=== PATIENT | female | born 1990 | race Caucasian/White ===

== ENCOUNTER 2016-09-13 05:36 | Inpatient (IN) | payer BC ==
[2016-09-13] VITALS (18 sets, daily range): BP systolic 119–150; BP diastolic 76–92; PULSE 67–79; TEMP 97.7–98.3
[~2016-09-13] VITALS: Ht 157.5 cm; Wt 92.7 kg
[~2016-09-13 05:36] MED LIST: IBREN600 MG PO; LANSINOH FOR BR1 OIN TP; MOTRIN 600600 MG/TAB PO; MOTRIN 800800 MG/TAB PO; PERCOCET 325 MG1 TA2 PO; PRENATAL1 TA1 PO; SENOKOT S 50 MG1 TAB PO; TYLENOL 325MG325 MG PO
[2016-09-13 07:10] LABS: MEAN CELL VOLUME 82 fl (80.0-100.0); MEAN CORPUSCULAR HGB CONC 33 g/dl (33.0-37.0); MEAN PLATELET VOLUME 10.8 fl (7.4-10.4); PLATELET COUNT 186 K/mm3 (130-400); RED BLOOD COUNT 4.36 M/mm3 (4.10-5.30); REDCELL DISTRIBUTION WIDTH-CV 13.7 % (11.5-14.5); WHITE BLOOD COUNT 6.3 K/mm3 (4.8-10.8)
[2016-09-13 07:14] LABS: ADD PATHOLOGY DIFF REVIEW NO; HEMATOCRIT 35.8 % (37.0-47.0); HEMOGLOBIN 11.7 g/dl (12.5-16.0); MEAN CORPUSCULAR HEMOGLOBIN 27 pg (27.0-31.0)
[2016-09-13 07:57] LABS: BAND 1 % (0-10); NEUTROPHILS 63 % (42.0-75.2); TOTAL CELLS COUNTED 100
[2016-09-13 07:58] LABS: PLATELET ESTIMATE NORMAL (NORMAL)
[2016-09-14 04:00] VITALS: BP 121/70; PULSE 77; TEMP 98.4
[2016-09-14 08:00] VITALS: BP 121/84; PULSE 82; TEMP 98
[2016-09-14 12:18] VITALS: BP 115/77; PULSE 74; TEMP 98.4
[2016-09-14 17:23] VITALS: BP 130/88; PULSE 86; TEMP 98.4
[2016-09-14 21:30] VITALS: BP 120/79; PULSE 72; TEMP 98.7
[2016-09-15 08:30] VITALS: BP 122/82; PULSE 71; TEMP 98.6
[2016-09-15] MEDS ORDERED: IBU800 M1 PO (09:14)
[2016-09-15] MEDS ORDERED: PERCOCET 325 MG1 TA2 PO (09:14)
[2016-09-15 16:28] VITALS: BP 125/80; PULSE 72; TEMP 98.5
== END 2016-09-15 17:15 | disposition home or self-care (01) | DRG 766 ==
LOC: OB 05:36
PROVIDERS: Obstetrics & Gynecology
PROC: 10D00Z1 Extraction of Products of Conception, Low, Open Approach (ICD-10-PCS; principal; 2016-09-13)
DX: O34.211 Maternal care for low transverse scar from previous cesarean delivery (principal); N85.8 Other specified noninflammatory disorders of uterus; Z3A.39 39 weeks gestation of pregnancy; Z37.0 Single live birth
CPT/HCPCS: J0690; J1885; J2270; J2370; J2405; J2590; J7120

== ENCOUNTER 2019-01-22 10:47 | Inpatient (IN) | payer OTHER ==
[2019-01-22] VITALS (18 sets, daily range): BP systolic 100–131; BP diastolic 53–81; PULSE 71–93; TEMP 97.9–98.4
[~2019-01-22] VITALS: Ht 157.5 cm; Wt 91.8 kg
[~2019-01-22 10:47] MED LIST changes: +IBU800 M1 PO
[2019-01-22 11:52] LABS: BASO % 0.3 % (0.0-2.0); EOS % 0.4 % (0-4.0); GRAN # 5.5 (1.4-6.5); GRAN % 70.4 % (42.2-75.2); HEMOGLOBIN 11.5 g/dl (12.5-16.0); LYMPH # 1.6 (1.2-3.4); LYMPH % 20.1 % (20.0-51.0); MEAN CELL VOLUME 86 fl (80.0-100.0); MEAN CORPUSCULAR HEMOGLOBIN 28 pg (27.0-31.0); MEAN CORPUSCULAR HGB CONC 32 g/dl (33.0-37.0); MEAN PLATELET VOLUME 10.5 fl (7.4-10.4); MONO # 0.6 (0.1-0.6); MONO % 7.6 % (1.7-9.3); PLATELET COUNT 216 K/mm3 (130-400); RED BLOOD COUNT 4.15 M/mm3 (4.10-5.30)
[2019-01-22 11:55] LABS: HEMATOCRIT 35.5 % (37.0-47.0)
--- NOTE | 2019-01-22 14:26 | NUR ---
1340 RETURNED TO ROOM 221 FROM PACU. PT ALERT AND NURSING INFANT. SWITCHED TO OTHER BREAST WITH ASSISTANCE. WATER, JUICE AND CRACKERS PROVIDED.
[2019-01-22] MEDS ORDERED: FERROUS SU325 MG/TAB PO (14:40)
[2019-01-22] MEDS ORDERED: PROBIOTIC FORMU1 CAP PO (14:41)
--- NOTE | 2019-01-22 17:44 | NUR ---
1600 PT RESTING IN ROOM, SLEEPINGIN CRIB DENIES NEEDS AT THIS TIME
[2019-01-23 03:45] VITALS: BP 114/76; PULSE 74; TEMP 97
[2019-01-23 07:41] VITALS: BP 123/85; PULSE 74; TEMP 98.4
[2019-01-23 16:13] VITALS: BP 125/82; PULSE 71; TEMP 87.3
[2019-01-23 21:00] VITALS: BP 135/80; PULSE 71; TEMP 98.5
[2019-01-24] MEDS ORDERED: NORCO 325 MG-51 TAB PO (08:29)
[2019-01-24] MEDS ORDERED: MOTRIN 800800 MG/TAB PO (08:29)
[2019-01-24 09:00] VITALS: BP 127/79; PULSE 69; TEMP 98.6
== END 2019-01-24 15:35 | disposition home or self-care (01) | DRG 788 ==
LOC: OB 10:47 → LDR 13:20 → OB 01-24 15:35
PROVIDERS: ADMIT Obstetrics & Gynecology
PROC: 10D00Z1 Extraction of Products of Conception, Low, Open Approach (ICD-10-PCS; principal; 2019-01-22)
DX: O34.211 Maternal care for low transverse scar from previous cesarean delivery (principal); Z3A.39 39 weeks gestation of pregnancy; Z37.0 Single live birth; O99.214 Obesity complicating childbirth; O99.62 Diseases of the digestive system complicating childbirth; K21.9 Gastro-esophageal reflux disease without esophagitis; O69.81X0 Labor and delivery complicated by cord around neck, without compression, not applicable or unspecified
CPT/HCPCS: J0690; J1885; J2370; J2405; J2590; J3010; J7120

== ENCOUNTER 2020-11-17 10:00 | Inpatient (IN) | payer OTHER ==
[2020-11-17] VITALS (15 sets, daily range): BP systolic 116–180; BP diastolic 9–104; PULSE 66–84; TEMP 97.7–99.1
[~2020-11-17] VITALS: Ht 157.5 cm; Wt 90.9 kg
[~2020-11-17 10:00] MED LIST changes: +FERROUS SU325 MG/TAB PO; +NORCO 325 MG-51 TAB PO; +PROBIOTIC FORMU1 CAP PO
--- NOTE | 2020-11-17 14:15 | NUR ---
Presents to labor and delivery for repeat cesaran section. Ambulates to the bathroom and puts gown on. Back to bed. heart monitor on. heart rated 136 with accelerations noted and no decels. Iv to right hand, fluid of lactated ringers started as ordered.
[2020-11-17 14:55] LABS: BASO % 0.3 % (0.0-2.0); EOS % 0.3 % (0-4.0); GRAN # 4.8 (1.4-6.5); GRAN % 67.9 % (42.2-75.2); HEMOGLOBIN 10.8 g/dl (12.5-16.0); LYMPH # 1.6 (1.2-3.4); LYMPH % 22.6 % (20.0-51.0); MEAN CELL VOLUME 81 fl (80.0-100.0); MEAN CORPUSCULAR HEMOGLOBIN 26 pg (27.0-31.0); MEAN CORPUSCULAR HGB CONC 32 g/dl (33.0-37.0); MEAN PLATELET VOLUME 10.4 fl (7.4-10.4); MONO # 0.6 (0.1-0.6); MONO % 8.3 % (1.7-9.3); PLATELET COUNT 228 K/mm3 (130-400); RED BLOOD COUNT 4.15 M/mm3 (4.10-5.30)
[2020-11-17 14:56] LABS: HEMATOCRIT 33.8 % (37.0-47.0)
--- NOTE | 2020-11-17 16:08 | NUR ---
1608-Ambulatory to OR with this RN and spouse.
--- NOTE | 2020-11-17 17:20 | NUR ---
1720-Recieved report from GUERRERO Nova. Patient A&Ox4, fundal massge firm, lochai min with small clot noted. VSS, see flow record. Remained with patient per protocol. 1800-To Room via bed. VSS, fundal massage firm, lochia remains WNL. Updated on plan of care and safety.
[2020-11-18] VITALS: BP 134/91; PULSE 89; TEMP 98
[2020-11-18 04:30] VITALS: BP 118/77; PULSE 77; TEMP 98.9
[2020-11-18 07:00] VITALS: BP 134/92; PULSE 87; TEMP 98.2
[2020-11-18 15:05] VITALS: BP 135/83; PULSE 78; TEMP 97.9
[2020-11-18 20:00] VITALS: BP 143/85; PULSE 80; TEMP 98.9
[2020-11-19 07:01] VITALS: BP 129/88; BP 131/91; PULSE 85; TEMP 97.9
[2020-11-19] MEDS ORDERED: MOTRIN 800800 MG/TAB PO (09:23)
[2020-11-19] MEDS ORDERED: NORCO 325 MG-51 TAB PO (09:24)
== END 2020-11-19 13:35 | disposition home or self-care (01) | DRG 788 ==
LOC: OB 10:00
PROVIDERS: ADMIT Obstetrics & Gynecology
PROC: 10D00Z1 Extraction of Products of Conception, Low, Open Approach (ICD-10-PCS; principal; 2020-11-17)
DX: O34.211 Maternal care for low transverse scar from previous cesarean delivery (principal); Z3A.39 39 weeks gestation of pregnancy; Z37.0 Single live birth
CPT/HCPCS: J0690; J1885; J2175; J2270; J2370; J2405; J2590; J7120

== ENCOUNTER 2021-02-02 06:29 | Observation (INO) | payer OTHER ==
[~2021-02-02] VITALS: Ht 157.5 cm; Wt 83.6 kg
[2021-02-02] VITALS (9 sets, daily range): BP systolic 120–177; BP diastolic 71–97; PULSE 65–86; TEMP 97.4–98.2
--- NOTE | 2021-02-02 10:00 | NUR ---
Pt arrived to room 330 at this time. She is A/O x4. Her breathing is even and unlabored on RA. Pt is independent up walking. She reports abdominal pain has improved but is still noticeable, does not feel she needs pain management at this time. Currently denies N/V/D. Reports two bouts of diarrhea yesterday. INT to LAC, flushes without issues. POC discussed with patient who verbalizes understanding. No needs at this time. Call light within reach.
[2021-02-02] MEDS ORDERED: AMOXICILLIN 8751 TAB PO (18:02)
[2021-02-02] MEDS ORDERED: NORCO 325 MG-51 TAB PO (18:03)
[2021-02-02] MEDS ORDERED: MOTRIN 600600 MG/TAB PO (18:03)
--- NOTE | 2021-02-02 19:38 | NUR ---
Pt recently arrived to the floor from surgery. Pt is very drowsy, but does wake briefly with stimuli. Pts father is present in the room with her. VSS at this time. Drsg to abd is CDI other sites without drainage and LINE SERVICER.
--- NOTE | 2021-02-02 22:55 | NUR ---
Pt continues to remain very sleepy. She does wake easily now when spoken to, but quickly falls back asleep and has to be rewoke to answer questions. Pt does state that she does not have any pain. VSS
--- NOTE | 2021-02-03 00:02 | NUR ---
Pt more awake now. She is starting to eat some applesauce. No complaints of nausea. Pt does have some complaints of pain with movement in her abd. VSS
[2021-02-03 00:03] VITALS: BP 125/76
--- NOTE | 2021-02-03 01:51 | NUR ---
Pt doing well at this time. She has tolerated linnea crackers with no nausea. She has been up to the restroom, had some pain complaints with movement. Called to get PRN pain medication
--- NOTE | 2021-02-03 04:05 | NUR ---
Pt states that the pain medication did help, no needs at this time.
[2021-02-03 04:17] VITALS: BP 132/93; PULSE 99; TEMP 98.5
[2021-02-03 07:54] VITALS: BP 141/99; PULSE 109; TEMP 98.6
[2021-02-03 08:05] LABS: BASO % 0.1 % (0.0-2.0); GRAN # 8.3 (1.4-6.5); GRAN % 87.2 % (42.2-75.2); HEMOGLOBIN 10.9 g/dl (12.5-16.0); LYMPH # 0.9 (1.2-3.4); LYMPH % 9.7 % (20.0-51.0); MEAN CELL VOLUME 78 fl (80.0-100.0); MEAN CORPUSCULAR HEMOGLOBIN 25 pg (27.0-31.0); MEAN CORPUSCULAR HGB CONC 32 g/dl (33.0-37.0); MONO # 0.3 (0.1-0.6); MONO % 2.8 % (1.7-9.3); PLATELET COUNT 294 K/mm3 (130-400); RED BLOOD COUNT 4.31 M/mm3 (4.10-5.30); REDCELL DISTRIBUTION WIDTH-CV 15.6 % (11.5-14.5)
[2021-02-03 08:08] LABS: HEMATOCRIT 33.8 % (37.0-47.0)
[2021-02-03 08:19] LABS: ALBUMIN 4.3 gm/dL (3.5-5.0); BILIRUBIN,TOTAL 0.3 mg/dL (0.0-1.0); CALCIUM 9.2 mg/dL (8.4-10.2); CREATININE, serum 0.9 (0.52-1.25); POTASSIUM 3.5 mmol/L (3.4-5.0); TOTAL PROTEIN 8.1 gm/dL (6.4-8.2)
--- NOTE | 2021-02-03 10:35 | NUR ---
Patient alert and oriented, answers questions appropriately. See assessment. Abdomen soft, non tender, non distended. Bowel sounds active x4 quads. No flatus. No bowel movement. Lap sites to abdomen with edges well approximated, no redness or drainage noted. Post op exercises reviewed with patient. No c/o at this time.
--- NOTE | 2021-02-03 12:03 | NUR ---
Plan is to return home with Yakov . Assessment: Patient reports that she sue snot have any needs. Currently resides in [place] with spouse. Patient reports that she uses [facility] for medications without difficulty. PCP is Nuha Noland. Does not use any DME or needs for [facility]. Action: Educated on services and CM supports. No additional concerns identifies.
--- NOTE | 2021-02-03 12:28 | NUR ---
Discharge instructions reviewed with patient, verbalized understanding. Discharged ambulatory to auto/home with family at 1228.
== END 2021-02-03 12:30 | disposition home or self-care (01) ==
LOC: MEDICAL 06:29 → SURG 09:49
PROVIDERS: ADMIT Surgery
DX: K80.12 Calculus of gallbladder with acute and chronic cholecystitis without obstruction (principal); I10 Essential (primary) hypertension; D64.9 Anemia, unspecified; Z79.899 Other long term (current) drug therapy
CPT/HCPCS: A9284; G0378; J0330; J0360; J0690; J1100; J1885; J2405; J2543; J2550; J2704; J3010; J7120; Q9967